=== PATIENT | male | born 1935 ===

== ENCOUNTER 2017-07-19 21:16 | Emergency (ER) | payer MEDICARE ==
[2017-07-19] MEDS ORDERED: ZOFRAN IV ONE (22:04)
[2017-07-19] MEDS ORDERED: MORPHINE IV ONE (22:04)
[2017-07-19] MEDS ORDERED: TORADOL IV ONE (22:04)
--- NOTE | 2017-07-19 23:29 | Cat Scan Report ---
FINAL REPORT PROCEDURE: CT HEAD/BRAIN WO CON TECHNIQUE: Computerized tomography of the head was performed without contrast material. HISTORY: fall, head injury COMPARISON: No prior studies are available for comparison. FINDINGS: Skull and scalp: Normal. Paranasal sinuses: Normal. Ventricles and subarachnoid spaces: Normal. Cerebrum: No evidence of hemorrhage, acute infarction or mass. Minimal atrophy and slight periventricular deep white matter changes.. Cerebellum and brainstem: No evidence of hemorrhage, acute infarction or mass. Vasculature: Normal. Comments: None. IMPRESSION: There is no evidence of an acute intracranial process. Minimal atrophy and slight periventricular deep white matter changes.
--- NOTE | 2017-07-19 23:30 | Cat Scan Report ---
FINAL REPORT PROCEDURE: CT CERVICAL SPINE WO CON TECHNIQUE: Computerized tomography of the cervical spine was performed from the skull base to T1 without contrast material. HISTORY: fall, head injury COMPARISON: No prior studies are available for comparison. FINDINGS: The alignment of the vertebral segments is normal. The heights of the vertebral bodies are maintained. There is loss of disc space height at the C 5 6 and C6-7 levels. Mild spur formation off the vertebral bodies and the facets is identified from the C4 through the C7 vertebral levels. The AP spinal canal is maintained. Slight bilateral neuroforamen stenosis identified at the C4-5, C5-6 and C6-7 levels. No acute fracture or dislocation of the cervical spine. IMPRESSION: There is no evidence of an acute fracture or dislocation of the cervical spine. Mild cervical spondylosis and degenerative disc changes as discussed..
--- NOTE | 2017-07-19 23:48 | Cat Scan Report ---
FINAL REPORT PROCEDURE: CT LUMBAR SPINE WO CON TECHNIQUE: Computerized axial tomography of the lumbar spine was performed from T12 to the sacrum without contrast material. HISTORY: fall, back pain COMPARISON: No prior studies are available for comparison. FINDINGS: L1-2: There is an acute compression fracture of the L1 vertebral body. This involves the vertebral segment extending through the vertebral body but not to the spinal canal. The posterior elements are maintained. There is an approximate 30 percent loss of vertebral body height along the anterior aspect of the L1 vertebral segment. The disc appears normal.. L2-3: The vertebral bodies are normal. The disc appears normal. No canal stenosis. L3-4: The vertebral bodies are normal. The disc is normal. No canal stenosis.. L4-5: There is slight forward subluxation of L4 relation L5 by approximately 3 millimeters. The vertebral bodies are normal. There is a slight circumferential bulging disc identified. There is slight left lateral canal stenosis. The AP spinal canal is maintained... L5-S1: The vertebral bodies are normal. The disc shows mild circumferential bulge. The spinal canal is normal.. Other: The alignment shows a slight anterior listhesis of L4 relation L5.. IMPRESSION: There is an acute compression fracture of the L1 vertebral body as described. This involves approximately 30 percent loss of vertebral body height. No evidence of extension into the canal. Mild cervical spondylosis and degenerative disc changes as discussed above in detail. There is a mild circumferential bulging disc at the L4-5 level that causes mild left lateral canal stenosis. The above findings are discussed with the patient's ER physician Dr. Tomlinson at the time of dictation 9284 central standard time on 07/19/2017
--- NOTE | 2017-07-19 23:50 | Cat Scan Report ---
FINAL REPORT PROCEDURE: CT THORACIC SPINE WO CON TECHNIQUE: Computerized axial tomography of the thoracic spine was performed from C7 - L1 without contrast material. HISTORY: fall, back pain COMPARISON: No prior studies are available for comparison. FINDINGS: A very mild left convex mid thoracic curvature is noted. No acute fracture dislocation of the thoracic spine. The heights of the vertebral bodies are maintained. There is moderate loss of disc space height at all levels. Mild spur formation off the vertebral bodies is identified at all levels. The spinal canal is adequate at all levels. IMPRESSION: No evidence of an acute fracture or dislocation. Moderate thoracic spondylosis and degenerative disc changes.
[2017-07-20] MEDS ORDERED: MORPHINE IV ONE (00:11)
--- NOTE | 2017-07-20 00:32 | Emergency Department Report ---
ED Fall HPI - General Chief Complaint: Fall Stated Complaint: BACK PAIN 2NDARY TO FALL Time Seen by Provider: 07/19/17 21:57 Source: patient Mode of arrival: Stretcher Limitations: No Limitations - History of Present Illness Initial Comments: 82-year-old female in no significant past medical history presents to the hospital complaints of back pain status post fall. Patient fell backwards while going down the stairs. Fall was not witnessed by family members at the bedside however, they heard the fall and assisted her immediately afterwards. No LOC reported. Patient complains of pain to the posterior scalp, her thoracic and lumbar back. No neck pain reported. Pain is rated 10/10 intensity , unable to characterize, constant, worse palpation and movement. No complaints of weakness, numbness, paresthesias. - Related Data Previous Rx's Medication Instructions Recorded Last Taken Type Docusate Sodium [Colace] 100 mg PO BID PRN #20 capsule 07/20/17 Unknown Rx HYDROcodone/APAP 5-325 [[place] 1 each PO Q6HR PRN #20 tablet 07/20/17 Unknown Rx 5/325] Ibuprofen [Motrin] 600 mg PO Q8H PRN #30 tablet 07/20/17 Unknown Rx Ondansetron [Zofran Odt] 4 mg PO Q8HR PRN #20 tab.rapdis 07/20/17 Unknown Rx Allergies Allergy/AdvReac Type Severity Reaction Status Date / Time codeine AdvReac Nausea Verified 07/19/17 22:33 ED Review of Systems ROS: Stated complaint: BACK PAIN 2NDARY TO FALL Other details as noted in HPI Comment: All other systems reviewed and negative ED Past Medical Hx - Past Medical History Hx of Cancer: Yes (breast cancer) - Surgical History Past Surgical History?: No - Social History Smoking Status: Never Smoker Substance Use Type: None - Medications Home Medications: Home Medications Medication Instructions Recorded Confirmed Last Taken Type Docusate Sodium [Colace] 100 mg PO BID PRN #20 capsule 07/20/17 Unknown Rx HYDROcodone/APAP 5-325 [[place] 1 each PO Q6HR PRN #20 tablet 07/20/17 Unknown Rx 5/325] Ibuprofen [Motrin] 600 mg PO Q8H PRN #30 tablet 07/20/17 Unknown Rx Ondansetron [Zofran Odt] 4 mg PO Q8HR PRN #20 tab.rapdis 07/20/17 Unknown Rx ED Physical Exam - General Limitations: No Limitations - Other Other exam information: General: Moderate distress secondary to pain Head exam: Contusion to left occipital area Eyes exam: Normal appearance ENT: Moist mucous membrane, normal oropharynx Neck exam: Normal inspection, full range of motion, no meningismus nontender Respiratory exam: Clear to auscultation bilateral, no wheezes, rales, crackles Cardiovascular: Normal rate and rhythm, normal heart sounds Abdomen: Soft, nondistended, and nontender, with normal bowel sounds, no rebound, or guarding Extremity: Full range of motion normal inspection no deformity, left anterior knee scar from previous surgery Back: Normal Inspection, full range of motion, generalized midline posterior thoracic and lumbar tenderness Neurologic: Alert, oriented x3, cranial nerves intact, no motor or sensory deficit Psychiatric: normal affect, normal mood Skin: Warm, dry, intact ED Course Vital Signs 07/19/17 07/19/17 07/19/17 21:46 22:00 22:02 Temperature 98.6 F Pulse Rate 84 Respiratory 18 Rate Blood Pressure 169/97 155/93 Blood Pressure 155/94 [Right] O2 Sat by Pulse 96 98 98 Oximetry 07/19/17 07/20/17 07/20/17 22:15 00:22 00:32 Temperature Pulse Rate Respiratory 20 12 Rate Blood Pressure 169/97 Blood Pressure [Right] O2 Sat by Pulse 98 Oximetry - Consultations Consultation #1: 07/20/17 00:[address] 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 Discussed lumbar CT findings. Outpatient follow-up and pain control and advised ED Medical Decision Making - Radiology Data Radiology results: report reviewed Read by radiologist CT head: No acute findings CT cervical spine: No acute findings. Degenerative changes CT thoracic spine: No acute findings. Degenerative changes CT lumbar spine: Acute compression fracture L1 vertebral body. 30% loss of vertebral body height. No extension into the spinal canal. Posterior elements are maintained. Disc appears normal. Mild disc bulges at L4-L5 that causes mild left lateral canal stenosis - Medical Decision Making Patient's pain decreased from a 10 to a 4 after morphine 4 mg, Zofran, and Toradol 30 mg IV. Additional morphine 4 mg ordered. Pain further improved The patient lives in [place] that would be healing [place] until August. She tess travel to [place] prior to returning to [place]. Copy of CT reports provided and local follow-up will be provided - Differential Diagnosis fracture, contusion, sprain, ICA Critical Care Time: No Critical care attestation.: If time is entered above; I have spent that time in minutes in the direct care of this critically ill patient, excluding procedure time. ED Disposition Clinical Impression: Fall down stairs, Minor head injury without loss of consciousness, Compression fracture of L1 lumbar vertebra, Herniated lumbar intervertebral disc, Degenerative arthritis of spine Disposition: TO HOME OR SELFCARE Is pt being admited?: No Does the pt Need Aspirin: No Condition: Stable Instructions: Vertebral Compression Fracture (ED), Lumbar Disc Herniation (ED) , Minor Head Injury (ED) Additional Instructions: Take the medication as prescribed for pain. Hydrocodone/[place] is a narcotic and cause drowsiness, nausea, and constipation. Take the Zofran as needed for nausea and Colace as needed for constipation. Return is symptoms worsen as indicated by a discharge instructions otherwise follow-up with the orthopedic doctor or the orthopedic doctor of choice. You were provided a copy of your CAT scan reports to take to your follow up appointment Prescriptions: Docusate Sodium [Colace] 100 mg PO BID PRN #20 capsule PRN Reason: Constipation HYDROcodone/APAP 5-325 [[place] 5/325] 1 each PO Q6HR PRN #20 tablet PRN Reason: Pain Ibuprofen [Motrin] 600 mg PO Q8H PRN #30 tablet PRN Reason: Pain Ondansetron [Zofran Odt] 4 mg PO Q8HR PRN #20 tab.rapdis PRN Reason: Nausea And Vomiting Referrals: CHAS CARMICHAEL MD [Staff Physician] - 3-5 Days (Orthopedic doctor) Time of Disposition: :29
[2017-07-20 02:40] VITALS: BP 106/65
== END 2017-07-20 02:41 | disposition home or self-care (01) ==
LOC: ED 21:16
DX: S32.019A Unspecified fracture of first lumbar vertebra, initial encounter for closed fracture (principal); S09.90XA Unspecified injury of head, initial encounter; M51.06 Intervertebral disc disorders with myelopathy, lumbar region; M19.90 Unspecified osteoarthritis, unspecified site; Z88.6 Allergy status to analgesic agent; W10.9XXA Fall (on) (from) unspecified stairs and steps, initial encounter; Y93.89 Activity, other specified; Y92.89 Other specified places as the place of occurrence of the external cause; Y99.8 Other external cause status
CPT/HCPCS: 70450; 72125; 72128; 72131; 96374; 96375; 96376; 99284; J1885; J2270; J2405